=== PATIENT | female | born 1995 | race Caucasian/White ===

== ENCOUNTER 2019-08-23 10:57 | Emergency (ER) | payer OTHER, SELFPAY ==
[2019-08-23 10:58] VITALS: BP 106/67; PULSE 69; RESP 16; TEMP 36.3; O2SAT 99; BMI 20.2
--- NOTE | 2019-08-23 11:01 | ED.RN ---
pt just got back from [place] yesterday
[2019-08-23 11:04] VITALS: BP 106/67; PULSE 69; RESP 16; TEMP 36.3; O2SAT 99
--- NOTE | 2019-08-23 11:07 | CT_ITS ---
STUDY: CT ABDOMEN AND PELVIS WITH CONTRAST REASON FOR EXAM: Female, 24 years old. RT SIDE ABD PAIN X 1.5 HRS [employer] RADIATION DOSAGE (If Supplied By Facility): CTDIvol = ( 8.28 ) mGy, DLP = ( 322.85 ) mGycm TECHNIQUE: Transaxial images were obtained from the dome of the diaphragm to the symphysis pubis with oral contrast. Oral and amp; IV Gastrografin and amp; 100mL Isovue-300 was administered. Sagittal and coronal images were reconstructed. Individualized dose optimization techniques were used for this CT. COMPARISON: None. FINDINGS: The visualized lung bases are unremarkable. The visualized portions of the heart are within normal limits. Small amount of perihepatic free fluid. Normal gallbladder and extrahepatic biliary system. Borderline splenomegaly. Normal pancreas. Normal bilateral adrenal glands. Normal right kidney. Normal left kidney. Normal visualized stomach. Normal small intestine. Normal colon. The appendix is visualized and appears normal. Normal abdominal aorta. Normal inferior vena cava. Normal retroperitoneum. Normal urinary bladder. There is a 9.2 cm by 5.4 cm x 6.7 cm septated cyst in the left adnexal region extending into the region of the cul-de-sac. Small follicles are seen in the right ovary. Correlation with ultrasound is recommended. Normal abdominal wall. Normal osseous structures. CT/Abdomen/Pelvis WITH Contrast IMPRESSION: Small amount of perihepatic free fluid. Small amount of fluid is seen in the Morison''s pouch. 9.2 cm x 5.4 cm x 6.7 cm septated cyst in the left adnexal region with extension to the region of the cul-de-sac. Correlation with ultrasound is recommended. Electronically Signed: Kyaw Lyles, at 13:04 EDT , Service support ,
[2019-08-23 11:21] LABS: Mucous, Urine 0 SEEN /hpf (<or=2+); Red Blood Cells-Urine 0 SEEN /hpf (0-5); White Blood Cells 0 SEEN /hpf (0-5)
[2019-08-23 11:22] LABS: Color, Urine Yellow (Yellow); Glucose, Dipstick Normal (Normal); Leukocyte Esterase-Dipstick 25 /ul (Negative); Nitrite-Dipstick Negative (Negative); Occult Blood-Urine Negative /ul (Negative); Protein-Dipstick Negative (Negative); Specific Gravity, Urine 1.025 (1.002-1.030); Urine Bilirubin Dipstick Negative (Negative); Urine Clarity Clear (Clear); Urine Urobilinogen 1 mg/dl (Normal)
[2019-08-23 11:22] LABS: Absolute Lymphocyte Count 1.72 X10^3/uL (0.83-4.51); Absolute Neutrophil Count 10.9 X10^3/uL (2.0-7.7); Basophil# 0.02 X10^3/uL; Basophil% 0.2 % (0-1); Eosinophil# 0.06 X10^3/uL; Eosinophils% 0.5 % (0-5); Hematocrit 40.7 % (37-47); Hemoglobin 13.3 g/dL (12.0-15.0); Lymphocyte # 1.72 X10^3/ul (4.0); Mean Corp Hgb Conc 32.7 g/dL (32-36); Mean Corpuscular Hgb 28.3 pg (27.0-32.0); Mean Corpuscular Volume 86.6 fL (81-99); Mean Platelet Vol. 9.6 fl (6.2-12.0); Monocyte# 0.54 X10^3/uL; Monocyte% 4.1 % (0-10); NRBC Flagged by Analyzer 0 % (0-5); Neutrophil # 10.85 X10^3/uL (2.7-7.7); Neutrophil % 81.8 % (47-70); Platelet Count 265 K/mm3 (150-450); RBC Distribution Width CV 13.2 % (11.6-14.6); RBC Distribution Width SD 40.8 fl (35.1-43.9); White Blood Count 13.2 K/mm3 (4.4-11.0)
[2019-08-23] MEDS: 0.9% Normal Saline 1,000 ML 125 ML IV (11:25)
[2019-08-23 11:27] LABS: Ketone-Dipstick 150 mg/dl (Negative)
[2019-08-23 11:28] LABS: Internal QC Validated? YES +Cl - CLEAR BKGD; Pregnancy, Serum, hCG Quali. NEGATIVE Negative
[2019-08-23 11:29] LABS: Bacteria 1+ /hpf (None Seen); Squamous Epithelial Cells - UA 5-10 SEEN /hpf (5-10)
[2019-08-23 11:37] LABS: ALB/GLOB Ratio 1.3 RATIO (0.9-2.4); AST(SGOT) 16 U/L (15-37); Alanine Aminotransfer ALT/SGPT 24 U/L (13-56); Albumin, Serum 4.9 g/dL (3.2-5.0); Alkaline Phosphatase 52 U/L (45-117); Anion Gap 6 (5-15); BUN 13 mg/dL (7-18); BUN/Creat Ratio 14.9 RATIO (10-20); Calcium,Total 9.5 mg/dL (8.5-10.1); Chloride 105 mmol/L (98-107); Creatinine, Serum 0.87 mg/dL (0.55-1.02); EST Glomerular Filtration Rate 85 mL/min (>60); Est Glom Filt Rate - Afr Amer 103 mL/min (>60); Estimated Creatinine Clearance 78.86 ml/min; Globulin 3.7 g/dL (2.2-4.2); Glucose 98 mg/dL (74-106); Potassium 3.6 mmol/L (3.5-5.1); Protein, Total 8.6 g/dL (6.4-8.2); Sodium Level 138 mmol/L (136-145)
--- NOTE | 2019-08-23 11:57 | ED.DCSUM_ITS ---
- ER Visit Summary Date of Service: 08/23/19 Chief Complaint: [Abdominal pain] History of Present Illness: The patient is a 24 F [presents the emergency department with complaint of abdominal pain is here about an hour and a half ago. Patient states the pain came on suddenly and was right lower abdomen but then became more diffuse. Initially the pain was relatively severe and rated about a 7 out of 10. Currently it is much improved and rates it only about a 2 out of 10. She denies urinary symptoms. She denies any fever. Denies vomiting. She is never had pain like this before. Her last menstrual period was about 3 weeks ago. She does not think that she is . She has no medical history. She is had no prior surgical history.] Physical Examination: [HEENT-PERRLA, EOMI. Cranial nerves II through XII grossly intact. TMs clear. Mucous membranes moist. No adenopathy. Cardiovascular-regular rate and rhythm without murmur or ectopy Lungs-clear to auscultation, chest wall stable without crepitus or subcu emphysema Abdomen-normoactive bowel sounds, soft. Patient has diffuse tenderness to palpation of the lower abdomen including the right lower quadrant, suprapubic, and left lower quadrant. There is no rebound, rigidity, or peritoneal signs. Extremities-intact ?4, normal range of motion, normal pulses, atraumatic] Test Results: [CBC with differential obtained showed a slightly elevated white count of 13.2, hemoglobin 13, hematocrit 41, placed to 65. Chemistries unremarkable. LFTs unremarkable. hCG was negative. Urinalysis had ketones but no signs of infection. CT scan of the abdomen pelvis with IV and p.o. contrast showed a normal appendix and normal gallbladder. No evidence of kidney stones. Patient was noted to have a 9 x 5 x 6.7 cm left adnexal cyst and recommended pelvic ultrasound. Patient was sent over for a transvaginal pelvic ultrasound which she refused and also refused a transabdominal ultrasound to evaluate further. Patient states she not having any lower abdominal pain at this time and would prefer just to follow-up with [facility].] Emergency Department Course and Treatment: [Patient refused pain medication. She did have an IV line established on arrival.] Treatment Plan: [Patient will be given referral to [facility] on-call and advised to follow-up within next 3 to 5 days. Patient advised to return if worsening pain, fever, vomiting, or condition should worsen anyway.] Disposition: [Discharged home in stable condition] Impression: [Abdominal pain Left ovarian cyst] This note was generated with [employer] dictation software. It may contain incorrect words, spelling, and punctuation that were not noted in review of the chart prior to signing ED Disposition - Plan for ED Patient: Referrals: Care Physician,No Primary [Primary Care Provider] -
[2019-08-23 13:00] VITALS: BP 106/51; PULSE 73; RESP 16; TEMP 36.1; O2SAT 100
[2019-08-23 13:03] VITALS: BP 106/51
--- NOTE | 2019-08-23 13:59 | ED.DEP ---
ED Disposition - Plan for ED Patient: Instructions: ED Cyst Ovarian, ED Abdominal Pain Unkn Cause Fem Referrals: Care Physician,No Primary [Primary Care Provider] - Alverto James MD [STAFF PHYSICIAN] - 3-5 Days
== END 2019-08-23 14:10 | disposition home or self-care (01) ==
PROVIDERS: Emergency Provider Emergency Medicine
DX: N83.202 Unspecified ovarian cyst, left side (principal); R10.31 Right lower quadrant pain; R10.32 Left lower quadrant pain
CPT/HCPCS: 74177; 80053; 81001; 84703; 85025; 99283; Q9967; A4216